=== PATIENT | male | born 1975 | race Caucasian/White ===

== ENCOUNTER → 2020-04-03 | Outpatient (CLI) | payer SELFPAY ==
[~2020-04-03] MED LIST: Baclofen10 MG PO; CYCL10 PO; IBUP800 PO; Mobic7.5 MG PO; Percocet 5-3251 EACH PO
[2020-04-03 18:22] LABS: Percent Saturation 14.2 % (20.0-50.0)
== END | disposition home or self-care (01) ==
LOC: LAB SHORT 16:56 → LAB 16:56
PROVIDERS: Nurse Practitioner Family
DX: D50.9 Iron deficiency anemia, unspecified (principal)
CPT/HCPCS: 82728; 83540; 83550

== ENCOUNTER 2021-10-01 19:44 | Inpatient (IN) | payer SELFPAY ==
[~2021-10-01] VITALS: Ht 180.3 cm; Wt 113.2 kg
[2021-10-01 20:45] LABS: BASOPHILS ABSOLUTE AUTO 0.02 K/mm3 (0.00-0.23); BASOPHILS PERCENT AUTO 0 % (0-2); EOSINOPHILS PERCENT AUTO 0 % (0-6); Hematocrit 38.9 % (37.0-53.0); Hemoglobin 12.5 g/dL (13.5-17.5); IMMATURE GRAN ABSOLUTE AUTO 0.06 K/mm3 (0.00-0.10); IMMATURE GRAN PERCENT AUTO 1 % (0-1); LYMPHOCYTES ABSOLUTE AUTO 0.64 K/mm3 (0.84-5.20); LYMPHOCYTES PERCENT AUTO 5 % (21-46); MONOCYTES ABSOLUTE AUTO 1.24 K/mm3 (0.16-1.47); MONOCYTES PERCENT AUTO 10 % (4-13); Mean Corpuscular HGB 25.2 pg (26.0-34.0); Mean Corpuscular HGB Conc 32.1 g/dL (31.5-36.5); Mean Corpuscular Volume 78 fL (80-100); Mean Platelet Volume 9.7 fL (9.1-12.4); NEUTROPHILS ABSOLUTE AUTO 10.42 K/mm3 (1.96-9.15); NEUTROPHILS PERCENT AUTO 84 % (41-73); Platelet Count 213 K/mm3 (150-400); RDW Coefficient Variation 15.8 % (11.7-14.2); Red Blood Cell Count 4.96 M/mm3 (4.30-5.90); White Blood Cell Count 12.38 K/mm3 (4.00-11.30)
[2021-10-01 21:08] LABS: Alanine Aminotransfer (ALT/SGP 37 U/L (12-78); Albumin/Globulin Ratio 0.6 (0.8-1.8); Alk Phos 100 U/L (50-136); Anion Gap 11 mmol/L (6-16); Aspartate Aminotrans (AST/SGOT 14 U/L (12-37); Blood Urea Nitrogen 11 mg/dL (8-24); Bun/Creatinine Ratio 11.7 (12.0-20.0); CO2, Blood 24 mmol/L (21-32); Chloride, Blood 99 mmol/L (98-108); Creatinine, Blood 0.94 mg/dL (0.60-1.20); Globulin, Blood 4.8 g/dL (2.2-4.0); Glomerular Filtration Rate >60 (60-); Glucose, Blood 118 mg/dL (70-99); Potassium, Blood 3.4 mmol/L (3.5-5.5); Sodium, Blood 134 mmol/L (136-145); Total Protein, Blood 7.8 g/dL (6.4-8.2)
[2021-10-02] MEDS ORDERED: IRON18 MG PO (02:26)
[2021-10-02] MEDS ORDERED: OMEP20ER PO (02:27)
[2021-10-02] MEDS ORDERED: PRAZ1 PO (02:27)
[2021-10-02 04:50] LABS: BASOPHILS ABSOLUTE AUTO 0.01 K/mm3 (0.00-0.23); BASOPHILS PERCENT AUTO 0 % (0-2); EOSINOPHILS PERCENT AUTO 0 % (0-6); Hematocrit 38.5 % (37.0-53.0); Hemoglobin 12.5 g/dL (13.5-17.5); IMMATURE GRAN PERCENT AUTO 1 % (0-1); LYMPHOCYTES ABSOLUTE AUTO 0.44 K/mm3 (0.84-5.20); LYMPHOCYTES PERCENT AUTO 4 % (21-46); MONOCYTES ABSOLUTE AUTO 0.31 K/mm3 (0.16-1.47); MONOCYTES PERCENT AUTO 3 % (4-13); Mean Corpuscular HGB 25.5 pg (26.0-34.0); Mean Corpuscular HGB Conc 32.5 g/dL (31.5-36.5); Mean Corpuscular Volume 78 fL (80-100); Mean Platelet Volume 9.7 fL (9.1-12.4); NEUTROPHILS ABSOLUTE AUTO 11.49 K/mm3 (1.96-9.15); NEUTROPHILS PERCENT AUTO 93 % (41-73); Platelet Count 234 K/mm3 (150-400); RDW Coefficient Variation 15.9 % (11.7-14.2); RDW Standard Deviation 45.1 fL (35.1-46.3); Red Blood Cell Count 4.91 M/mm3 (4.30-5.90); White Blood Cell Count 12.35 K/mm3 (4.00-11.30)
--- NOTE | 2021-10-02 05:15 | NUR ---
ADMIT/SUMMARY PT TO UNIT FROM ED. PT AXO. IN ST/SR. HYPERTENSIVE ON ADMIT, NOW NORMOTENSIVE. ON RA, WITHOUT STRIDOR/WHEEZING TO UPPER/LOWER RESPIRATORY TRACT. PT DENIES SOB. USING URINAL. PT COUGHING UP PHLEGM, WHITE. STATES BELIEVING THAT THE ORAL ANTIBIOTIC THAT GOT STUCK IN HIS THROAT EARLIER IN THE DAY IS STILL IN HIS THROAT STUCK. OTHERWISE, PT RESTING IN ROOM POST ADMISSION.
[2021-10-02 05:24] LABS: Anion Gap 11 mmol/L (6-16); Blood Urea Nitrogen 13 mg/dL (8-24); Bun/Creatinine Ratio 15.2 (12.0-20.0); CO2, Blood 24 mmol/L (21-32); Calcium, Blood 9.1 mg/dL (8.5-10.1); Chloride, Blood 98 mmol/L (98-108); Creatinine, Blood 0.86 mg/dL (0.60-1.20); Glomerular Filtration Rate >60 (60-); Glucose, Blood 149 mg/dL (70-99); Potassium, Blood 3.3 mmol/L (3.5-5.5); Sodium, Blood 133 mmol/L (136-145)
--- NOTE | 2021-10-02 09:15 | NUR ---
Pt A&O, does not report any pain at this time and denies any SOB or trouble breathing at this time. Lung sounds are clear. Throat appears red left side greater than right side. Small area of white/ greenish skin on left side. IV decadron and IV abx continued per orders.
--- NOTE | 2021-10-02 13:55 | NUR ---
Pt tolerated clear liquids well, advanced diet to full liquids.
--- NOTE | 2021-10-02 15:04 | NUR ---
VSS on RA, airway remains clear. No change in wound in back of throat. Still red and swollen left side greater than right with small greenish area. Pt reports improvement in swallowing liquids, reports less pain. Diet has been advanced to full liquids.
--- NOTE | 2021-10-02 16:41 | NUR ---
Shift note: Pt is A&O, pleasant with cares. VSS on RA. Tele: SR 80s. Pts wound in throat is reddened on left > than right side with a greenish spot in back of throat. Pt reports some improvemnet with swallowing, says there is less pain and feels it is easier to swallow. Diet was advanced to full liquids and pt is tolerating well. IV abx and IV steriods continued per orders. Airway has remained clear with infrequent cough. IV fluids (NS) given 75ml/hr per orders.
--- NOTE | 2021-10-03 07:40 | NUR ---
Pt reports that he normally takes lisinopril 10mg daily and prilosec in AM. I will call MD to notify, BP is starting to increase and pt is reporting indigestion. Pt states the full liquid diet has been going well and no issues swallowing liquids, advanced diet to puree for breakfast.
[2021-10-03 09:12] LABS: BASOPHILS ABSOLUTE AUTO 0.02 K/mm3 (0.00-0.23); BASOPHILS PERCENT AUTO 0 % (0-2); EOSINOPHILS PERCENT AUTO 0 % (0-6); Hemoglobin 13.3 g/dL (13.5-17.5); IMMATURE GRAN ABSOLUTE AUTO 0.15 K/mm3 (0.00-0.10); IMMATURE GRAN PERCENT AUTO 1 % (0-1); LYMPHOCYTES ABSOLUTE AUTO 0.63 K/mm3 (0.84-5.20); LYMPHOCYTES PERCENT AUTO 4 % (21-46); MONOCYTES ABSOLUTE AUTO 0.39 K/mm3 (0.16-1.47); MONOCYTES PERCENT AUTO 3 % (4-13); Mean Corpuscular HGB 25.2 pg (26.0-34.0); Mean Corpuscular HGB Conc 31.7 g/dL (31.5-36.5); Mean Corpuscular Volume 80 fL (80-100); Mean Platelet Volume 9.8 fL (9.1-12.4); NEUTROPHILS ABSOLUTE AUTO 13.08 K/mm3 (1.96-9.15); NEUTROPHILS PERCENT AUTO 92 % (41-73); Platelet Count 310 K/mm3 (150-400); RDW Standard Deviation 45.9 fL (35.1-46.3); Red Blood Cell Count 5.27 M/mm3 (4.30-5.90); White Blood Cell Count 14.27 K/mm3 (4.00-11.30)
[2021-10-03 09:18] LABS: Albumin, Blood 2.9 g/dL (3.4-5.0); Anion Gap 6 mmol/L (6-16); Blood Urea Nitrogen 20 mg/dL (8-24); Bun/Creatinine Ratio 24.2 (12.0-20.0); CO2, Blood 27 mmol/L (21-32); Calcium, Blood 9.5 mg/dL (8.5-10.1); Chloride, Blood 105 mmol/L (98-108); Creatinine, Blood 0.83 mg/dL (0.60-1.20); Glomerular Filtration Rate >60 (60-); Glucose, Blood 167 mg/dL (70-99); Phosphorus, Blood 2.6 mg/dL (2.5-4.9); Potassium, Blood 3.4 mmol/L (3.5-5.5); Sodium, Blood 138 mmol/L (136-145)
--- NOTE | 2021-10-03 10:59 | NUR ---
Pt tolerating puree diet, advanced diet to mechanical soft.
[2021-10-03] MEDS ORDERED: AMOCLA875 PO (12:42)
[2021-10-03] MEDS ORDERED: AZO CRANBERRY PO (12:46)
--- NOTE | 2021-10-03 14:00 | NUR ---
Pt tolerating mechanical soft diet well.
--- NOTE | 2021-10-03 14:59 | NUR ---
Shift note: Pt is A&O, pleasant with cares. VSS on RA, BP slightly elevated and scheduled home meds added back in. IV steriods and abx given per orders. Dr. Cerda wanted pt to have a total of 8 doses of IV abx prior to D/C, last dose will be given at 1700 (Dr. Cerda oked to give abx a bit early). Pt will d/c after 8th dose of antibiotics is given. Clear lung sounds. Throat/tonsil area is still swollen and red with green spots, but the swelling seems improved from yesterday. ENT consulted today and recommends pt get tonsils removed outpt.
== END 2021-10-03 18:37 | disposition home or self-care (01) | DRG 144 ==
LOC: ER 19:44 → PCU 10-02 00:28
PROVIDERS: Family Medicine; Internal Medicine; Physician Assistant; ADMIT Internal Medicine
PROC: 0C9PXZZ Drainage of Tonsils, External Approach (ICD-10-PCS; principal; 2021-10-02)
DX: J36 Peritonsillar abscess (principal); I82.409 Acute embolism and thrombosis of unspecified deep veins of unspecified lower extremity; I10 Essential (primary) hypertension; K21.9 Gastro-esophageal reflux disease without esophagitis; Z53.29 Procedure and treatment not carried out because of patient's decision for other reasons; Z79.899 Other long term (current) drug therapy
CPT/HCPCS: 10160; 36415; 70491; 80048; 80053; 80069; 83605; 85025; 87040; 94760; 96365-59; 96366-59; 96375-59; 96376; 99285-25; A9270; J0295; J1100; J1650; J3010; J7030; J7050; Q9967

== ENCOUNTER 2023-03-26 08:52 | Emergency (ER) | payer BC | END 2023-03-26 11:17 | disposition home or self-care (01) | LOC: ER 08:52 | DX: R55 Syncope and collapse (principal); Z79.899 Other long term (current) drug therapy ==

== ENCOUNTER 2023-03-29 12:09 | Emergency (ER) | payer BC ==
[~2023-03-29] VITALS: Ht 180.3 cm; Wt 127.0 kg
[~2023-03-29 12:09] MED LIST changes: +AMOCLA875 PO; +AZO CRANBERRY PO; +IRON18 MG PO; +OMEP20ER PO; +PRAZ1 PO
[2023-03-29 14:07] LABS: BASOPHILS ABSOLUTE AUTO 0.03 K/mm3 (0.00-0.23); BASOPHILS PERCENT AUTO 1 % (0-2); EOSINOPHILS ABSOLUTE AUTO 0.07 K/mm3 (0.00-0.68); EOSINOPHILS PERCENT AUTO 1 % (0-6); Hematocrit 48.6 % (37.0-53.0); Hemoglobin 16.7 g/dL (13.5-17.5); IMMATURE GRAN ABSOLUTE AUTO 0.01 K/mm3 (0.00-0.10); IMMATURE GRAN PERCENT AUTO 0 % (0-1); LYMPHOCYTES ABSOLUTE AUTO 1.67 K/mm3 (0.84-5.20); LYMPHOCYTES PERCENT AUTO 27 % (21-46); MONOCYTES ABSOLUTE AUTO 0.59 K/mm3 (0.16-1.47); MONOCYTES PERCENT AUTO 9 % (4-13); Mean Corpuscular HGB 31.7 pg (26.0-34.0); Mean Corpuscular HGB Conc 34.4 g/dL (31.5-36.5); Mean Corpuscular Volume 92 fL (80-100); Mean Platelet Volume 9.2 fL (9.1-12.4); NEUTROPHILS ABSOLUTE AUTO 3.94 K/mm3 (1.96-9.15); NEUTROPHILS PERCENT AUTO 62 % (41-73); Platelet Count 238 K/mm3 (150-400); RDW Coefficient Variation 12.2 % (11.7-14.2); RDW Standard Deviation 41.4 fL (35.1-46.3); Red Blood Cell Count 5.26 M/mm3 (4.30-5.90); White Blood Cell Count 6.31 K/mm3 (4.00-11.30)
[2023-03-29 14:09] LABS: Albumin, Blood 3.9 g/dL (3.4-5.0); Bilirubin, Total 0.3 mg/dL (0.1-1.0); Bun/Creatinine Ratio 12.3 (12.0-20.0); Calcium, Blood 9.4 mg/dL (8.5-10.1); Creatinine, Blood 0.97 mg/dL (0.60-1.20); Globulin, Blood 3.9 g/dL (2.2-4.0); Potassium, Blood 4.2 mmol/L (3.5-5.5); Total Protein, Blood 7.8 g/dL (6.4-8.2)
[2023-03-29 16:07] VITALS: BP 170/113
== END 2023-03-29 16:19 | disposition home or self-care (01) ==
LOC: ER 12:09
PROVIDERS: Physician Assistant
DX: R55 Syncope and collapse (principal); W18.30XA Fall on same level, unspecified, initial encounter
CPT/HCPCS: 80053; 83735; 85025; 93005; 93010; 99284-25

== ENCOUNTER 2023-05-02 10:44 | Emergency (ER) | payer BC ==
[~2023-05-02] VITALS: Ht 180.3 cm; Wt 127.0 kg
[2023-05-02 11:17] LABS: BASOPHILS ABSOLUTE AUTO 0.02 K/mm3 (0.00-0.23); BASOPHILS PERCENT AUTO 0 % (0-2); EOSINOPHILS ABSOLUTE AUTO 0.01 K/mm3 (0.00-0.68); EOSINOPHILS PERCENT AUTO 0 % (0-6); Hematocrit 46.5 % (37.0-53.0); Hemoglobin 16.4 g/dL (13.5-17.5); IMMATURE GRAN ABSOLUTE AUTO 0.04 K/mm3 (0.00-0.10); IMMATURE GRAN PERCENT AUTO 0 % (0-1); LYMPHOCYTES ABSOLUTE AUTO 1.91 K/mm3 (0.84-5.20); LYMPHOCYTES PERCENT AUTO 17 % (21-46); MONOCYTES ABSOLUTE AUTO 0.79 K/mm3 (0.16-1.47); MONOCYTES PERCENT AUTO 7 % (4-13); Mean Corpuscular HGB Conc 35.3 g/dL (31.5-36.5); Mean Corpuscular Volume 91 fL (80-100); Mean Platelet Volume 9.6 fL (9.1-12.4); NEUTROPHILS ABSOLUTE AUTO 8.32 K/mm3 (1.96-9.15); NEUTROPHILS PERCENT AUTO 75 % (41-73); Platelet Count 187 K/mm3 (150-400); RDW Coefficient Variation 12.1 % (11.7-14.2); RDW Standard Deviation 40.3 fL (35.1-46.3); Red Blood Cell Count 5.12 M/mm3 (4.30-5.90); White Blood Cell Count 11.09 K/mm3 (4.00-11.30)
[2023-05-02 11:44] LABS: Albumin, Blood 3.7 g/dL (3.4-5.0); Bilirubin, Total 0.3 mg/dL (0.1-1.0); Bun/Creatinine Ratio 18.1 (12.0-20.0); Calcium, Blood 8.8 mg/dL (8.5-10.1); Creatinine, Blood 0.83 mg/dL (0.60-1.20); Globulin, Blood 3.7 g/dL (2.2-4.0); Potassium, Blood 4.3 mmol/L (3.5-5.5); Total Protein, Blood 7.4 g/dL (6.4-8.2)
[2023-05-02 12:47] VITALS: BP 129/95
== END 2023-05-02 12:47 | disposition home or self-care (01) ==
LOC: ER 10:44
PROVIDERS: Physician Assistant
DX: S39.011A Strain of muscle, fascia and tendon of abdomen, initial encounter (principal); I10 Essential (primary) hypertension; K21.9 Gastro-esophageal reflux disease without esophagitis; Z79.899 Other long term (current) drug therapy; X58.XXXA Exposure to other specified factors, initial encounter
CPT/HCPCS: 74177; 80053; 83690; 85025; 99284-25; Q9967

== ENCOUNTER → 2023-05-19 | Outpatient (CLI) | payer BC ==
[2023-05-19 20:16] LABS: Percent Saturation 30.3 % (20.0-50.0)
== END | disposition home or self-care (01) ==
LOC: LAB 14:06 → LAB SHORT 14:06
PROVIDERS: Nurse Practitioner Family
DX: D50.9 Iron deficiency anemia, unspecified (principal)
CPT/HCPCS: 82607; 82728; 82746; 83540; 83550

== ENCOUNTER 2023-06-27 09:33 | Day surgery (SDC) | payer BC ==
[~2023-06-27] VITALS: Ht 180.3 cm; Wt 127.3 kg
--- NOTE | 2023-06-27 12:35 | NUR ---
06/27/23 1235 Alona Rios EPI 1 MG ADDED TO 1ST 3 LITER OF LR IRRIGATION
[2023-06-27 14:03] VITALS: BP 146/99
--- NOTE | 2023-06-27 17:15 | NUR ---
06/27/231714 Cirilo Carter PT TITRATED TO R/A UPON ARRVING IN SDU. O2 DROPPED BREIFLY TO <92%. PT DENIED SOB, DIZZINESS, AND OTHER SYMPTOMS OF HYPOXIA. NONE WERE OBSERVED. HE WAS TRANSFERED TO RECLINER AND MAINTAINED O2 >92% THROUGH THE REST OF STAY IN SDU.
== END 2023-06-27 15:00 | disposition home or self-care (01) ==
LOC: ORSCSDS 09:33
PROVIDERS: Orthopaedic Surgery
PROC: 0SBD4ZZ Excision of Left Knee Joint, Percutaneous Endoscopic Approach (ICD-10-PCS; principal; 2023-06-27 11:00)
DX: S83.231A Complex tear of medial meniscus, current injury, right knee, initial encounter (principal); M23.42 Loose body in knee, left knee; E66.9 Obesity, unspecified; Z68.39 Body mass index [BMI] 39.0-39.9, adult
CPT/HCPCS: A9270; J0171; J0690; J1100; J1885; J2250; J2405; J2704; J2795; J3010; J7120

== ENCOUNTER 2023-12-19 09:19 | Day surgery (SDC) | payer BC ==
[~2023-12-19] VITALS: Ht 180.3 cm; Wt 125.2 kg
[~2023-12-19 09:19] MED LIST changes: +Lactated Ringer's 1,000 ML IV ONE
[2023-12-19] MEDS ORDERED: Lactated Ringer's 1,000 ML IV ONE (10:03)
[2023-12-19] MEDS ORDERED: propofoL 50 ML IV ONE (10:18)
[2023-12-19] MEDS ORDERED: Midazolam HCL 1 MG/ML 5MLVIAL ONE (10:18)
[2023-12-19] MEDS ORDERED: FentaNYL Citrate 50 MCG/ML 2 ML Injection ONE (10:18)
[2023-12-19 11:26] VITALS: BP 138/98
== END 2023-12-19 11:37 | disposition home or self-care (01) ==
LOC: ORSCSDS 09:19
PROVIDERS: Internal Medicine Gastroenterology
PROC: 0DBM8ZX Excision of Descending Colon, Via Natural or Artificial Opening Endoscopic, Diagnostic (ICD-10-PCS; principal; 2023-12-19 10:30)
PROC: 0DB68ZX Excision of Stomach, Via Natural or Artificial Opening Endoscopic, Diagnostic (ICD-10-PCS; principal; 2023-12-19 10:30)
PROC: 0DBK8ZX Excision of Ascending Colon, Via Natural or Artificial Opening Endoscopic, Diagnostic (ICD-10-PCS; principal; 2023-12-19 10:30)
DX: K92.1 Melena (principal); I10 Essential (primary) hypertension; Z87.11 Personal history of peptic ulcer disease; Z87.898 Personal history of other specified conditions; D12.4 Benign neoplasm of descending colon; K63.5 Polyp of colon
CPT/HCPCS: 88305; 88342; J2250; J2704; J3010; J7120

== ENCOUNTER 2024-02-21 09:11 | Emergency (ER) | payer BC ==
[~2024-02-21] VITALS: Ht 180.3 cm; Wt 127.0 kg
[~2024-02-21 09:11] MED LIST changes: -Lactated Ringer's 1,000 ML IV ONE
[2024-02-21 10:07] LABS: BASOPHILS ABSOLUTE AUTO 0.03 K/mm3 (0.00-0.23); BASOPHILS PERCENT AUTO 0 % (0-2); EOSINOPHILS ABSOLUTE AUTO 0.03 K/mm3 (0.00-0.68); EOSINOPHILS PERCENT AUTO 0 % (0-6); Hematocrit 50.4 % (37.0-53.0); Hemoglobin 17.3 g/dL (13.5-17.5); IMMATURE GRAN ABSOLUTE AUTO 0.02 K/mm3 (0.00-0.10); IMMATURE GRAN PERCENT AUTO 0 % (0-1); LYMPHOCYTES ABSOLUTE AUTO 1.67 K/mm3 (0.84-5.20); LYMPHOCYTES PERCENT AUTO 20 % (21-46); MONOCYTES ABSOLUTE AUTO 0.55 K/mm3 (0.16-1.47); MONOCYTES PERCENT AUTO 7 % (4-13); Mean Corpuscular HGB 31.4 pg (26.0-34.0); Mean Corpuscular HGB Conc 34.3 g/dL (31.5-36.5); Mean Corpuscular Volume 92 fL (80-100); Mean Platelet Volume 9.3 fL (9.1-12.4); NEUTROPHILS ABSOLUTE AUTO 6.17 K/mm3 (1.96-9.15); NEUTROPHILS PERCENT AUTO 73 % (41-73); Platelet Count 214 K/mm3 (150-400); RDW Coefficient Variation 12.2 % (11.7-14.2); RDW Standard Deviation 41.2 fL (35.1-46.3); Red Blood Cell Count 5.51 M/mm3 (4.30-5.90); White Blood Cell Count 8.47 K/mm3 (4.00-11.30)
[2024-02-21 10:31] LABS: Albumin, Blood 4.3 g/dL (3.4-5.0); Albumin/Globulin Ratio 1.2 (0.8-1.8); Bilirubin, Total 0.6 mg/dL (0.1-1.0); Bun/Creatinine Ratio 15.4 (12.0-20.0); Calcium, Blood 9.4 mg/dL (8.5-10.1); Creatinine, Blood 0.98 mg/dL (0.60-1.20); Globulin, Blood 3.6 g/dL (2.2-4.0); Potassium, Blood 3.8 mmol/L (3.5-5.5); Total Protein, Blood 7.9 g/dL (6.4-8.2)
[2024-02-21] MEDS ORDERED: HydroCHLOROthiazide 25 mg Tab PO ONE (15:25)
[2024-02-21] MEDS ORDERED: HYDCHL25 PO (15:26)
[2024-02-21 15:49] VITALS: BP 169/101
== END 2024-02-21 15:53 | disposition home or self-care (01) ==
LOC: ER 09:11
PROVIDERS: Student in an Organized Health Care Education/Training Program
DX: I10 Essential (primary) hypertension (principal); K21.9 Gastro-esophageal reflux disease without esophagitis
CPT/HCPCS: 71046; 80053; 83880; 84484; 85025; 93005; 93010; 99285-25; A9270